=== PATIENT | female | born 1980 | race Two or more races ===

== ENCOUNTER 2018-11-05 18:15 | Inpatient (IN) | payer SELFPAY ==
[~2018-11-05] VITALS: Ht 162.6 cm; Wt 83.9 kg
[2018-11-05 09:20] VITALS: BP 89/51
[2018-11-05] MEDS ORDERED: IV NORMAL SALINE 1000ML BAG 1,000 ML IV ONE (18:45)
[2018-11-05] MEDS ORDERED: fentaNYL PF VIAL 100 MCG/2 ML VIAL IM ONE (18:45)
[2018-11-05 18:59] LABS: BASO # 0.1 x10^3/uL (0.0-0.2); BASO % 1 % (0-3); EOS # 0.1 x10^3/uL (0.0-0.7); EOS % 2 % (0-3); HEMATOCRIT 42.5 % (36.0-47.0); HEMOGLOBIN 14.2 g/dL (12.0-15.5); LYMPH # 1.6 x10^3/uL (1.0-4.8); LYMPH % 30 % (24-48); MEAN CORPUSCULAR HEMOGLOBIN 30 pg (25-35); MEAN CORPUSCULAR HGB CONC 33 g/dL (31-37); MEAN CORPUSCULAR VOLUME 91 fL (79-100); MONO # 0.4 x10^3/uL (0.0-1.1); MONO % 7 % (0-9); NEUT # 3.3 x10^3uL (1.8-7.7); NEUT % 59 % (31-73); PLATELET COUNT 254 x10^3/uL (140-400); RED BLOOD COUNT 4.67 x10^6/uL (3.50-5.40); RED CELL DISTRIBUTION WIDTH 12.9 % (11.5-14.5); WHITE BLOOD COUNT 5.5 x10^3/uL (4.0-11.0)
[2018-11-05] MEDS ORDERED: fentaNYL PF VIAL 100 MCG/2 ML VIAL IV ONE (19:00)
[2018-11-05 19:07] LABS: CALCIUM 9.1 mg/dL (8.5-10.1); CREATININE 0.5 mg/dL (0.6-1.0); GFR 140.4; POTASSIUM 3.8 mmol/L (3.5-5.1)
--- NOTE | 2018-11-05 19:07 | PHYS DOC ---
Past Medical History Past Medical History: No Pertinent History Past Surgical History: No Surgical History Alcohol Use: None Drug Use: None Adult General Chief Complaint Chief Complaint: ABDOMINAL PAIN HPI HPI Patient is a 37 year old female who presents with pelvic pain and chills. The patient had a miscarriage one week ago. She miscarried at home. Dr. Mcgee is her FOOD SERVICE ORDER CLERK. She saw him 4 days ago and was recovering with no consultations. She states that this pelvic pain that started yesterday. She is having bright red vaginal discharge, but is not soaking more than a pad an hour. Review of Systems Review of Systems Constitutional: Denies fever or chills [] Respiratory: Denies cough or shortness of breath [] Cardiovascular: No additional information not addressed in HPI [] GI: Denies abdominal pain, nausea, vomiting, bloody stools or diarrhea [] : See history of present illness Musculoskeletal: Denies back pain or joint pain [] Integument: Denies rash or skin lesions [] Neurologic: Denies headache, focal weakness or sensory changes [] Endocrine: Denies polyuria or polydipsia [] All other systems were reviewed and found to be within normal limits, except as documented in this note. Current Medications Current Medications Current Medications Medications (Trade) Dose Ordered Sig/[facility] Start Time Stop Time Status Last Admin Dose Admin Fentanyl Citrate (Fentanyl 2ml Vial) 75 mcg 1X ONCE 11/05/18 19:00 11/05/18 19:03 DC 11/05/18 19:00 75 MCG Sodium Chloride 1,000 ml @ 1,000 mls/hr 1X ONCE 11/05/18 18:45 11/05/18 19:44 DC 11/05/18 18:53 1,000 MLS/HR Allergies Allergies Allergies Coded Allergies Type Severity Reaction Last Updated Verified No Known Drug Allergies 11/05/18 No Physical Exam Physical Exam Constitutional: Well developed, well nourished, no acute distress, non-toxic appearance. [] Neck: Normal range of motion, no tenderness, supple, no stridor. [] Cardiovascular:Heart rate regular rhythm, no murmur [] Lungs & Thorax: Bilateral breath sounds clear to auscultation [] Abdomen: Bowel sounds normal, soft, suprapubic tenderness with guarding, no masses, no pulsatile masses. [] Skin: Warm, dry, no erythema, no rash. [] Neurologic: Alert and oriented X 3, normal motor function, normal sensory function, no focal deficits noted. [] Psychologic: Affect normal, judgement normal, mood normal. [] Current Patient Data Vital Signs Vital Signs Date Time Temp Pulse Resp B/P (MAP) Pulse Ox O2 Delivery O2 Flow Rate FiO2 11/05/18 19:00 16 99 Room Air 11/05/18 18:39 97.9 70 114/64 (81) 97.9 Lab Values Laboratory Tests Test 11/05/18 18:45 11/05/18 19:10 11/05/18 20:04 White Blood Count 5.5 x10^3/uL (4.0-11.0) Red Blood Count 4.67 x10^6/uL (3.50-5.40) Hemoglobin 14.2 g/dL (12.0-15.5) Hematocrit 42.5 % (36.0-47.0) Mean Corpuscular Volume 91 fL (79-100) Mean Corpuscular Hemoglobin 30 pg (25-35) Mean Corpuscular Hemoglobin Concent 33 g/dL (31-37) Red Cell Distribution Width 12.9 % (11.5-14.5) Platelet Count 254 x10^3/uL (140-400) Neutrophils (%) (Auto) 59 % (31-73) Lymphocytes (%) (Auto) 30 % (24-48) Monocytes (%) (Auto) 7 % (0-9) Eosinophils (%) (Auto) 2 % (0-3) Basophils (%) (Auto) 1 % (0-3) Neutrophils # (Auto) 3.3 x10^3uL (1.8-7.7) Lymphocytes # (Auto) 1.6 x10^3/uL (1.0-4.8) Monocytes # (Auto) 0.4 x10^3/uL (0.0-1.1) Eosinophils # (Auto) 0.1 x10^3/uL (0.0-0.7) Basophils # (Auto) 0.1 x10^3/uL (0.0-0.2) Maternal Serum HCG Beta Subunit 271 mIU/mL (0-5) H Sodium Level 141 mmol/L (136-145) Potassium Level 3.8 mmol/L (3.5-5.1) Chloride Level 104 mmol/L (98-107) Carbon Dioxide Level 25 mmol/L (21-32) Anion Gap 12 (6-14) Blood Urea Nitrogen 10 mg/dL (7-20) Creatinine 0.5 mg/dL (0.6-1.0) L Estimated GFR (Cockcroft-Gault) 140.4 BUN/Creatinine Ratio 20 (6-20) Glucose Level 97 mg/dL (70-99) Calcium Level 9.1 mg/dL (8.5-10.1) Total Bilirubin 0.4 mg/dL (0.2-1.0) Aspartate Amino Transferase (AST) 22 U/L (15-37) Alanine Aminotransferase (ALT) 46 U/L (14-59) Alkaline Phosphatase 67 U/L (46-116) Total Protein 7.8 g/dL (6.4-8.2) Albumin 4.4 g/dL (3.4-5.0) Albumin/Globulin Ratio 1.3 (1.0-1.7) Lactic Acid Level 1.0 mmol/L (0.4-2.0) POC Urine HCG, Qualitative Hcg positive (Negative) Laboratory Tests 11/05/18 18:45 Laboratory Tests 11/05/18 18:45 EKG EKG [] Radiology/Procedures Radiology/Procedures [] PATIENT: RABIA RAYMUNDO ACCOUNT: [id number] : 1980 LOCATION: ER AGE: 37 SEX: F EXAM STATUS: REG ER ORD. PHYSICIAN: SERGIO CISNEROS APRN REASON: pelvic pain, miscarriage 1 week ago PROCEDURE: PELVIS W/TV Ultrasound pelvis complete and transvaginal ultrasound pelvis HISTORY: Pelvic pain miscarriage one week ago Sonographic examination of the pelvis and perform a transabdominal and endovaginal technique. Multiple static images were obtained. The uterus measures 4.9 x 11.0 x 6.5 cm. There is a hypervascular heterogeneous mass in the lower uterine segment. Transvaginal ultrasound pelvis: The endometrium of the uterus appears normal and measures 6 mm in thickness. There is a heterogeneous mass in the lower uterine segment and cervix that is hypervascular. Some of this is cystic or hemorrhagic. There is an area which could be a gestational sac and yolk sac. Right ovary appears normal normal blood flow measures 3.3 x 2.4 x 2.2 cm. The left ovary appears normal normal blood flow measures 2.4 x 4.1 x 2.5 cm. IMPRESSION: Hypervascular mass in the lower uterine segment and cervix. This could be an ectopic within a scar. Trophoblastic disease is possible. Recommend correlation with serial quantitative beta hCG. FOOD SERVICE ORDER CLERK consultation is recommended as well. The ovaries appear normal. The fundus of the uterus appears normal. Electronically signed by: Lucas Juarez III, MD (11/05/2018 8:14 PM) [id number] DICTATED and SIGNED BY: LUCAS JUAREZ III, MD DATE: 11/05/182013 Course & Med Decision Making Course & Med Decision Making Pertinent Labs and Imaging studies reviewed. (See chart for details) []The patient has been accepted to Dr. Mcgee's service. She will have a serial beta quant in the morning and follow-up with Dr. Mcgee. She has been given morphine in the emergency department for pain. Dragon Disclaimer Dragon Disclaimer This electronic medical record was generated, in whole or in part, using a voice recognition dictation system. Departure Departure Impression: Primary Impression: Uterine mass Disposition: ADMITTED INPATIENT Admitting Physician: Other (Dr. Mcgee) Condition: GOOD Referrals: NO PCP (PCP) SERGIO CISNEROS APRN Nov 05, 2018 19:07
[2018-11-05 19:13] LABS: ALBUMIN 4.4 g/dL (3.4-5.0); ALBUMIN/GLOBULIN RATIO 1.3 (1.0-1.7); TOTAL BILIRUBIN 0.4 mg/dL (0.2-1.0); TOTAL PROTEIN 7.8 g/dL (6.4-8.2)
[2018-11-05 20:14] LABS: BILIRUBIN,URINE NEGATIVE (NEG); CLARITY,URINE CLOUDY; COLOR,URINE YELLOW; NITRITE,URINE NEGATIVE (NEG); PROTEIN,URINE NEGATIVE (NEG-TRACE); UROBILINOGEN,URINE 0.2 mg/dL (0.2 mg/dL)
--- NOTE | 2018-11-05 20:17 | RAD ---
Ultrasound pelvis complete and transvaginal ultrasound pelvis HISTORY: Pelvic pain miscarriage one week ago Sonographic examination of the pelvis and perform a transabdominal and endovaginal technique. Multiple static images were obtained. The uterus measures 4.9 x 11.0 x 6.5 cm. There is a hypervascular heterogeneous mass in the lower uterine segment. Transvaginal ultrasound pelvis: The endometrium of the uterus appears normal and measures 6 mm in thickness. There is a heterogeneous mass in the lower uterine segment and cervix that is hypervascular. Some of this is cystic or hemorrhagic. There is an area which could be a gestational sac and yolk sac. Right ovary appears normal normal blood flow measures 3.3 x 2.4 x 2.2 cm. The left ovary appears normal normal blood flow measures 2.4 x 4.1 x 2.5 cm. IMPRESSION: Hypervascular mass in the lower uterine segment and cervix. This could be an ectopic within a scar. Trophoblastic disease is possible. Recommend correlation with serial quantitative beta hCG. MEAT [employer]ER consultation is recommended as well. The ovaries appear normal. The fundus of the uterus appears normal. Electronically signed by: Darío Zambrano III, MD (11/05/2018 8:14 PM) [facility]
[2018-11-05 20:23] LABS: SQUAMOUS EPITHELIAL CELL,UR MOD /LPF
[2018-11-05 20:24] LABS: AMORPHOUS SEDIMENT,UR PRESENT /HPF; BACTERIA,URINE FEW /HPF (0-FEW)
[2018-11-05] MEDS ORDERED: ACETAMINOPHEN 325 MG TABLET. PO PRN (20:30)
[2018-11-05] MEDS ORDERED: MORPHINE SULFATE 4 MG/ML VIAL. IV PRN (20:30)
[2018-11-05] MEDS ORDERED: fentaNYL PF VIAL 100 MCG/2 ML VIAL IV PRN (20:30)
[2018-11-05] MEDS ORDERED: ONDANSETRON PF 4 MG/2 ML VIAL. IV PRN (20:30)
[2018-11-05 21:20] VITALS: BP 129/68
[2018-11-05] MEDS: IV NORMAL SALINE 1000ML BAG 1,000 ML IV SCH (22:15)
[2018-11-05] MEDS ORDERED: ZOLPIDEM 5 MG TABLET. PO PRN (22:30)
[2018-11-06] VITALS (10 sets, daily range): BP systolic 79–104; BP diastolic 41–64
[2018-11-06] MEDS: IBUPROFEN 400 MG TABLET. PO PRN ×3 (00:43→18:39)
[2018-11-06] MEDS: IV NORMAL SALINE 1000ML BAG 1,000 ML IV SCH ×4 (04:26→22:00)
[2018-11-06 06:56] LABS: BASO # 0.1 x10^3/uL (0.0-0.2); BASO % 1 % (0-3); EOS # 0.2 x10^3/uL (0.0-0.7); EOS % 3 % (0-3); HEMATOCRIT 37.4 % (36.0-47.0); HEMOGLOBIN 12.6 g/dL (12.0-15.5); LYMPH # 2.1 x10^3/uL (1.0-4.8); LYMPH % 35 % (24-48); MEAN CORPUSCULAR HEMOGLOBIN 31 pg (25-35); MEAN CORPUSCULAR HGB CONC 34 g/dL (31-37); MEAN CORPUSCULAR VOLUME 92 fL (79-100); MONO # 0.4 x10^3/uL (0.0-1.1); MONO % 7 % (0-9); NEUT # 3.3 x10^3uL (1.8-7.7); NEUT % 55 % (31-73); PLATELET COUNT 218 x10^3/uL (140-400); RED BLOOD COUNT 4.09 x10^6/uL (3.50-5.40); RED CELL DISTRIBUTION WIDTH 12.8 % (11.5-14.5); WHITE BLOOD COUNT 5.9 x10^3/uL (4.0-11.0)
[2018-11-06 07:02] LABS: CALCIUM 8.1 mg/dL (8.5-10.1); CREATININE 0.6 mg/dL (0.6-1.0); GFR 113.8; POTASSIUM 3.9 mmol/L (3.5-5.1)
[2018-11-06] MEDS ORDERED: OXYTOCIN 10 UNIT/ML VIAL. ONE ×3 (16:05→17:06)
[2018-11-06] MEDS ORDERED: miSOPROStol 200 MCG TABLET ONE (16:05)
[2018-11-06] MEDS ORDERED: ONDANSETRON PF 4 MG/2 ML VIAL. ONE (17:06)
[2018-11-06] MEDS ORDERED: PROPOFOL 20 ML IV ONE (17:06)
[2018-11-06] MEDS ORDERED: fentaNYL PF VIAL 100 MCG/2 ML VIAL ONE ×2 (17:06→17:54)
[2018-11-06] MEDS ORDERED: DEXAMETHASONE SOD PHOS 20 MG/5 ML VIAL. ONE (17:06)
[2018-11-06] MEDS ORDERED: LIDOCAINE 2% PF 5 ML VIAL. ONE (17:06)
[2018-11-06] MEDS ORDERED: SEVOFLURANE 31 TO 60 MINUTES. IH ONE (17:06)
--- NOTE | 2018-11-06 17:15 | PDOC1 ---
OB - History Hx of Present Care: Limited Care Ultrasounds: Abnormal US findings (Incomplete Ab) Medical Complications: None Past Family/Social History * Past Medical, Surgical, Family and Obstetric Histories reviewed from chart. Blood Type: A+ Rubella: Immune RPR/VDRL: Negative GBS Status: Unknown HBsAG: Negative OB - Chief Complaint & HPI Date of Admission: Date of Admission: Nov 05, 2018 at 20:22 Chief Complaint/History : 7 Para: 5 EDC: Nov 20, 2018 Reason for admission: vaginal bleeding Other reason for admission: VB and pelvic pain Admission Nurse Assessment Rev: Yes OB - Admission Exam Physical Exam Vitals: VS - Last 72 Hours, by Label Date Time Temp Pulse Resp B/P (MAP) Pulse Ox O2 Delivery O2 Flow Rate FiO2 11/06/18 16:00 97.7 59 18 102/64 (77) 100 Room Air 97.7 59 11/06/18 10:40 98.0 61 18 97/64 (75) 98 Room Air 98.0 11/06/18 05:05 97.7 57 14 96/57 (70) 100 Room Air 97.7 11/06/18 00:44 98.4 60 16 104/61 (75) 100 Room Air 98.4 11/05/18 21:30 Room Air 11/05/18 21:20 97.9 129/68 (88) 100 97.9 11/05/18 21:00 75 15 129/68 (88) 100 Room Air 11/05/18 20:30 76 15 132/71 (91) 99 Room Air 11/05/18 19:30 84 16 126/68 (87) 99 Room Air 11/05/18 19:00 16 99 Room Air 11/05/18 18:39 97.9 70 16 114/64 (81) 100 Room Air 97.9 HEENT: Normal, Nasal Mucosa Normal, Oropharynx Normal, Moist Membranes, Fontanelles Normal Heart: Regular Rate Lungs: Clear, Equal Abdomen: Gravid Extremities: Normal Pulses, No tenderness or swelling Reflexes: Normal Assessment/Plan Assessment/Plan Early IUP incomplete ab Suction MIGUEL Fuentes MD Nov 06, 2018 17:15
[2018-11-06] MEDS ORDERED: GLYCOPYRROLATE 1 MG/5 ML VIAL. ONE (17:27)
--- NOTE | 2018-11-06 17:43 | PDOC ---
BRIEF OPERATIVE NOTE Date: Nov 06, 2018 Pre-Op Diagnosis Incomplete Ab Post-Op Diagnosis Same Procedure Performed Suction D and C Surgeon Everardo Counter Top Maker None Anesthesia Type: General Blood Loss 100cc Specimens Obtained POC Findings Dictated Complications None MIGUEL ANDREWS MD Nov 06, 2018 17:42
[2018-11-06] MEDS ORDERED: HYDR-3164 PO (17:46)
[2018-11-06] MEDS ORDERED: NAPR-514 PO (17:46)
[2018-11-06] MEDS ORDERED: DOXY100C14 PO (17:46)
[2018-11-06] MEDS ORDERED: METH0.2T36 PO (17:46)
[2018-11-06] MEDS ORDERED: IV RINGERS,LACTATED 1000ML 1,000 ML IV SCH (17:54)
[2018-11-06] MEDS ORDERED: PROCHLORPERAZINE 10 MG/2 ML VIAL. ONE (17:54)
[2018-11-06] MEDS ORDERED: MORPHINE SULFATE 2 MG/ML VIAL. IV PRN (18:00)
[2018-11-06] MEDS ORDERED: LIDOCAINE 1% PF 2 ML VIAL. ID PRN (18:00)
[2018-11-06] MEDS ORDERED: HYDROmorphone 2 MG/ML VIAL IV PRN (18:00)
[2018-11-06] MEDS ORDERED: ONDANSETRON PF 4 MG/2 ML VIAL. IV PRN (18:00)
[2018-11-06] MEDS ORDERED: fentaNYL PF VIAL 100 MCG/2 ML VIAL IV PRN ×2 (18:00)
[2018-11-06] MEDS ORDERED: PROCHLORPERAZINE 10 MG/2 ML VIAL. IV PRN (18:00)
--- NOTE | 2018-11-06 20:15 | OP ---
DATE OF SURGERY: 11/06/2018 PREOPERATIVE DIAGNOSIS: Incomplete . POSTOPERATIVE DIAGNOSIS: Incomplete . PROCEDURES: 1. Suction D and C. 2. Exam under anesthesia. ANESTHESIA: General. ESTIMATED BLOOD LOSS: 100 mL. SURGEON: Jean Pierre Mcgee M.D. TECHNICAL SPECIALIST CYTOGENETICS: None. FINDINGS: Approximately 9-10 weeks axial uterus and boggy. Normal external genitalia and cervix. COMPLICATIONS: None. CONDITION: Stable. DESCRIPTION OF PROCEDURE: After risks, benefits, indications, alternatives, and expectations were discussed in detail with the patient, the patient was brought to OR theater, placed in dorsal lithotomy position in George stirrups. After adequate general anesthesia, the patient prepped and draped in usual sterile manner. Exam under anesthesia was performed. Above findings were noted. Posterior weighted speculum was placed in the vaginal vault, curved [place] was used to identify the cervix. Cervix was grasped with a single tooth tenaculum. Cervix was dilated up with #12 Hegar dilator. A #11 curved clear suction cannula was then used. There was a gentle suction curettage in all quadrants. Products of conception was seen going through the clear tubing. Sharp curettage was then performed and the usual cry was heard. Uterus was explored with stone forceps. No membranes or other tissue was noted. A suction curettage was once again placed. No further products of conception was seen going through the clear tubing. The procedure was terminated. There was a tear in the anterior lip of the cervix, was reapproximated with a [id number] 0 Vicryl stitch. Good hemostasis was assured. A single tooth tenaculum was removed. Puncture site was hemostatic. The vaginal vault was wiped clean with a sponge stick. The tubing was cleared with normal saline. Sponge, needle and instrument counts were correct x 3 per nurse staff. The patient went to postop anesthesia recovery in stable condition. JEAN PIERRE MCGEE MD DR: JIMMY/champ JOB#: [id number] / [id number]
[2018-11-06] MEDS: METHYLERGONOVINE MALEATE 0.2 MG TABLET PO SCH (21:11)
[2018-11-07 01:43] LABS: BASO % 0 % (0-3); EOS % 0 % (0-3); HEMATOCRIT 37.4 % (36.0-47.0); HEMOGLOBIN 12.4 g/dL (12.0-15.5); LYMPH # 0.6 x10^3/uL (1.0-4.8); LYMPH % 6 % (24-48); MEAN CORPUSCULAR HEMOGLOBIN 30 pg (25-35); MEAN CORPUSCULAR HGB CONC 33 g/dL (31-37); MEAN CORPUSCULAR VOLUME 91 fL (79-100); MONO # 0.1 x10^3/uL (0.0-1.1); MONO % 1 % (0-9); NEUT % 92 % (31-73); PLATELET COUNT 222 x10^3/uL (140-400); RED BLOOD COUNT 4.11 x10^6/uL (3.50-5.40); RED CELL DISTRIBUTION WIDTH 12.9 % (11.5-14.5); WHITE BLOOD COUNT 9.7 x10^3/uL (4.0-11.0)
[2018-11-07 01:46] LABS: % SEGS 90 % (35-66)
[2018-11-07 01:47] LABS: % BANDS 2 % (0-9); % LYMPHS 8 % (24-48); OVALOCYTES FEW; PLT ESTIMATE ADEQUATE (ADEQUATE)
[2018-11-07] MEDS: IV NORMAL SALINE 1000ML BAG 1,000 ML IV SCH (02:58)
[2018-11-07 05:20] VITALS: BP 116/62
[2018-11-07 10:58] VITALS: BP 108/62
[2018-11-07] MEDS: METHYLERGONOVINE MALEATE 0.2 MG TABLET PO SCH (10:58)
--- NOTE | 2018-11-08 17:07 | PATHOLOGY ---
[facility] Accession Number: [id number] . 01 Material submitted: . product of conception - PRODUCTS OF CONCEPTION . 01 Clinical history: . Incomplete . 02 Diagnosis: Uterine contents, suction D and C: - Products of conception, comprised of focally necrotic and degenerating immature chorionic villi with intervillous hemorrhage, placental membranous tissue, and segments of decidual and endometrial tissue. (JPM:[facility] 11/08/2018) QTP/11/08/2018 . 02 Electronically signed: . Pete Petty MD, Pathologist NPI- [id number] . 01 Gross description: . The specimen is received in formalin, labeled "Natalia Lazar, products of conception", are multiple irregular fragments of predominantly hemorrhagic tissues measuring 7.0 x 4.7 x 1.0 cm in aggregate. Spongy placental tissue is identified but no parts or grapelike cystic structures. Construction Technology Instructor tissue is submitted in A1-A3. ([facility]; 11/07/2018) SHS/SHS . 02 Pathologist provided ICD-10: O03.9 . 02 CPT . 849974 Specimen Comment: A courtesy copy of this report has been sent to Specimen Comment: [phone], . Specimen Comment: Report sent to / DR CISNEROS Performed at: 01 [facility] [address] [facility] [address], [place] [id number] MD Sha Lance MD Phone: [phone] Performed at: 02 [facility] [address] [place], [place] [id number] MD Pete Petty MD Phone: [phone]
== END 2018-11-07 12:00 | disposition home health service (06) | DRG 770 ==
LOC: EDSEX 18:15 → ER 18:15 → 3 NORTH 20:22
PROVIDERS: ADMIT Specialist; ATTEND Specialist
PROC: 0UQC7ZZ Repair Cervix, Via Natural or Artificial Opening (ICD-10-PCS; 2018-11-06)
PROC: 10D17ZZ Extraction of Products of Conception, Retained, Via Natural or Artificial Opening (ICD-10-PCS; principal; 2018-11-06 17:30)
DX: O03.4 Incomplete spontaneous abortion without complication (principal); O71.3 Obstetric laceration of cervix
CPT/HCPCS: 36415; 76830; 76856; 80048; 80053; 81001; 81025; 83605; 84702; 85007; 85025; 85610; 85730; 88305; 96361; 96374; A7015; C1769; J0780; J1100; J2001; J2405; J2590; J2704; J3010; J3490; J7030; 99285-25